=== PATIENT | male | born 1955 | race Caucasian/White ===

== ENCOUNTER 2020-11-03 07:31 | Day surgery (SDC) | payer OTHER ==
[2020-10-29 12:04] VITALS: BMI 32.1
[2020-11-03] MEDS ORDERED: LIDOCAINE HCL/PF 2% SDV 5ML VIAL ONE (07:35)
[2020-11-03] MEDS ORDERED: PROPOFOL 20 ML ONE ×3 (07:36)
[2020-11-03 08:56] VITALS: TEMP 97
[2020-11-03 09:30] VITALS: BP 115/62; PULSE 82
== END 2020-11-03 09:30 | disposition home or self-care (01) ==
LOC: FASU-ENDO 07:31
PROVIDERS: ATTEND Internal Medicine Gastroenterology
PROC: 0DJD8ZZ Inspection of Lower Intestinal Tract, Via Natural or Artificial Opening Endoscopic (ICD-10-PCS; principal; 2020-11-03 08:33)
DX: Z12.11 Encounter for screening for malignant neoplasm of colon (principal); K57.30 Diverticulosis of large intestine without perforation or abscess without bleeding